=== PATIENT | male | born 1995 | race American Indian/Alaskan Native ===

== ENCOUNTER 2019-10-01 11:16 | Emergency (ER) | payer BC, OTHER ==
[2019-10-01] MEDS ORDERED: Sodium Chloride 0.9% 10 ML Syringe FLUSH PRN ×2 (11:29→11:33)
[2019-10-01] MEDS ORDERED: Lactated Ringers 1,000 ML IV ONE ×2 (11:32→11:58)
[2019-10-01] MEDS ORDERED: Morphine 4 MG/ML Syringe IVPUSH ONE ×2 (11:33→11:59)
[2019-10-01] MEDS ORDERED: Ondansetron 4 MG/2 ML SDV IV ONE (11:34)
[2019-10-01 11:56] LABS: ANION GAP 19.8; CHLORIDE,CL 104 mmol/L (101-111); SODIUM,NA 141 mmol/L (135-145)
[2019-10-01] MEDS ORDERED: 50% Dextrose in Water 50 ML Syringe IVPUSH ONE (11:59)
[2019-10-01] MEDS ORDERED: 50% Dextrose in Water 50 ML Syringe ONE (12:00)
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
[2019-10-01] MEDS ORDERED: Diphtheria,Pertussis(Acell),Tetanus Vaccine 0.5 ML SDV IM ONE (12:20)
[2019-10-01] MEDS ORDERED: Sodium Chloride 0.9% 1,000 ML IV ONE (12:27)
== END 2019-10-01 12:50 ==
LOC: DL.ED 11:16
DX: T68.XXXA Hypothermia, initial encounter (principal); T33.522A Superficial frostbite of left hand, initial encounter; T33.521A Superficial frostbite of right hand, initial encounter; T33.822A Superficial frostbite of left foot, initial encounter; T33.821A Superficial frostbite of right foot, initial encounter; T33.99XA Superficial frostbite of other sites, initial encounter; F10.129 Alcohol abuse with intoxication, unspecified; Y90.6 Blood alcohol level of 120-199 mg/100 ml; X31.XXXA Exposure to excessive natural cold, initial encounter
CPT/HCPCS: 36415; 51702; 71045; 80053; 80305-QW; 81001; 82550; 82962; 83605; 85025; 85610; 85730; 86140; 90471; 90715; 93005; 96361; 96374; 96375; 99285-25; G0480; J2270; J2405; J7030; J7120

== ENCOUNTER 2019-11-19 19:35 | Emergency (ER) | payer MEDICAID, OTHER ==
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
[2019-11-19] MEDS ORDERED: Sodium Chloride 0.9% 10 ML Syringe FLUSH PRN (20:19)
[2019-11-19 21:05] LABS: ANION GAP 13.6; CHLORIDE,CL 101 mmol/L (101-111); SODIUM,NA 135 mmol/L (135-145)
[2019-11-19] MEDS ORDERED: Piperacillin/Tazobactam 3.375 GM in Sodium Chloride 0.9% 100 ML IV ONE (21:26)
== END 2019-11-19 22:17 ==
LOC: DL.ED 19:35
DX: T33.822A Superficial frostbite of left foot, initial encounter (principal); T33.821A Superficial frostbite of right foot, initial encounter; T33.812A Superficial frostbite of left ankle, initial encounter; T33.811A Superficial frostbite of right ankle, initial encounter; X31.XXXA Exposure to excessive natural cold, initial encounter
CPT/HCPCS: 36415; 80053; 82550; 83605; 85025; 87040; 96365; 99284; J2543; J7050

== ENCOUNTER 2020-07-06 16:14 | Emergency (ER) | payer MEDICAID, OTHER ==
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
== END 2020-07-06 17:09 | disposition home or self-care (01) ==
LOC: DL.ED 16:14
DX: S02.2XXA Fracture of nasal bones, initial encounter for closed fracture (principal); F17.210 Nicotine dependence, cigarettes, uncomplicated; W22.8XXA Striking against or struck by other objects, initial encounter
CPT/HCPCS: 70486; 99283; 99283-25

== ENCOUNTER 2024-10-15 16:42 | Emergency (ER) | payer MEDICAID | END 2024-10-15 17:10 | disposition left against medical advice (07) | LOC: DL.ED 16:42 | DX: Z53.21 Procedure and treatment not carried out due to patient leaving prior to being seen by health care provider (principal) ==